=== PATIENT | male | born 1985 | race Two or more races ===

== ENCOUNTER 2022-04-29 17:38 | Emergency (ER) | payer BC ==
[2022-04-29] MEDS ORDERED: diphenhydrAMINE 50 MG/ML SDV IM ONE (18:13)
[2022-04-29] MEDS ORDERED: Ketorolac 30 MG/ML SDV IM ONE (18:13)
[2022-04-29] MEDS ORDERED: Metoclopramide 10 MG/2 ML SDV IM ONE (18:13)
[2022-04-29] MEDS ORDERED: HYDROmorphone 0.5 MG/0.5 ML Syringe IM ONE (18:14)
== END 2022-04-29 19:30 | disposition home or self-care (01) ==
LOC: JD.ED 17:38
DX: R51.9 Headache, unspecified (principal); R11.2 Nausea with vomiting, unspecified
CPT/HCPCS: 96372; 99283; J1170; J1200; J1885; J2765; 99282